=== PATIENT | female | born 2000 | race Caucasian/White ===

== ENCOUNTER → 2018-02-22 | Outpatient (CLI) | payer OTHER ==
[~2018-02-22] MED LIST: ANTIBIOTIC; BENZ29.52 TP; IBUP-136 PO; IBUP600T22 PO; NO MEDS; POLY17PO25 PO; RANI-366 PO; TRAM-420 PO; [UNRECOGNIZED DRUG - OTHER]; acne med PO
[2018-02-22 10:58] LABS: PLATELET COUNT, AUTOMATED 324 K/uL (150-450)
--- NOTE | 2018-02-22 14:07 | RADIOLOGY IMAGING REPORT ---
FACILITY: [facility] - [place] PATIENT NAME: Lidia Horan : 2000 MR: [id number] V: [id number] EXAM DATE: ORDERING PHYSICIAN: MARIBEL GONSALEZ TECHNOLOGIST: Location: [facility] [place] Patient: Lidia Horan : 2000 Visit/Account:[id number] Date of Sevice: 02/22/2018 ABD SINGLE ORGAN/QUAD/FOLLOWUP HISTORY: Right lower quadrant pain, fever began last night COMPARISON: CT abdomen pelvis May 27, 2008 FINDINGS: Multiple sonographic images were obtained in the right lower quadrant. An appendix is not definitive ly seen. There is no demonstration of a right lower quadrant mass or fluid collection. IMPRESSION: The appendix could not be definitively identified in the right lower quadrant. If acute appendicitis is of strong clinical concern CT may be helpful. Report Dictated By: Maria A Saldaña MD at 02/22/2018 1:02 PM Report E-Signed By: Maria A Saldaña MD at 02/22/2018 2:02 PM WSN:[email or web address]
--- NOTE | 2018-02-22 14:50 | RADIOLOGY IMAGING REPORT ---
FACILITY: PATIENT NAME: Lidia Horan : 2000 MR: [id number] V: [id number] EXAM DATE: ORDERING PHYSICIAN: MARIBEL GONSALEZ TECHNOLOGIST: Location: [facility] Patient: Lidia Horan : 2000 Visit/Account:[id number] Date of Sevice: 02/22/2018 TRANSVAGINAL NON-OB HISTORY: Right-sided pelvic pain. Evaluate for potential cyst. LMP February 17, 2018. TECHNIQUE: There has been satisfactory transabdominal ultrasonic evaluation of the pelvis. COMPARISON: None. FINDINGS: Uterus: Minimally anteverted; it measures: 5.9 cm length x 2.2 cm AP x 4.3 cm transverse. Myometrium: No fibroids noted. Endometrium: Unremarkable; endometrial thickness 3.8 mm. Cervix: Grossly negative. Ovaries: Right - the right ovary measures 3.0 x 2.8 x 1.7 cm in size and appears normal. Left - left ovary measures 2.3 x 2.8 x 2.1 cm in size and appears normal. Blood flow is documented in each ovary by duplex Doppler ultrasound. Adnexa: No adnexal masses are seen.. Free pelvic fluid: None. Bladder: The bladder is distended and unremarkable. IMPRESSION: 1. Normal pelvic ultrasound. No findings of an ovarian cyst. Normal uterus. Normal bladder. Report Dictated By: Harris Andrea MD at 02/22/2018 2:42 PM Report E-Signed By: Harris Andrea MD at 02/22/2018 2:44 PM WSN:[email or web address]
== END ==
LOC: LAB 10:40
PROVIDERS: ATTEND Pediatrics Adolescent Medicine
DX: R10.9 Unspecified abdominal pain (principal)
CPT/HCPCS: 36415; 76705; 76856; 85025